=== PATIENT | male | born 1990 ===

== ENCOUNTER 2016-10-15 19:19 | Emergency (ER) | payer SELFPAY ==
[2016-10-15 19:42] VITALS: BP 132/86
--- NOTE | 2016-10-15 19:49 | UC ---
Complaint Male HPI - HPI Summary HPI Summary: right testicular pain since 10/12/16, intermittent, now right side feels swollen. No penile discharge. States he recently had urine testing and STD testing that was negative. 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 SO Onset/Duration: Gradual Onset, Lasting Days, Still Present Timing: Intermittent, Lasting Minutes Severity Initially: Moderate Severity Currently: Moderate Pain Intensity: 2 Pain Scale Used: 0-10 Numeric Location: Testicle - right Character: Sharp Aggravating Factor(s): Nothing Alleviating Factor(s): Nothing Associated Signs And Symptoms: Negative: Back Pain, Fever, Dysuria, Penile Swelling, Penile Discharge - Risk Factors Testicular Torsion: Negative - Allergies/Home Medications Allergies/Adverse Reactions: Allergies Allergy/AdvReac Type Severity Reaction Status Date / Time No Known Allergies Allergy Verified 10/15/16 19:43 Home Medications: Home Medications NK [No Home Medications Reported] 10/15/16 [History Confirmed 10/15/16] PMH/Surg Hx/FS Hx/Imm Hx Previously Healthy: Yes - Surgical History Surgical History: None - Family History Known Family History: Positive: Hypertension - Social History Alcohol Use: Rare Substance Use Type: None Smoking Status (MU): Heavy Every Day Tobacco Smoker Type: Cigarettes Amount Used/How Often: 1/2 PPD Have You Smoked in the Last Year: Yes - Immunization History Most Recent Influenza Vaccination: none Review of Systems Constitutional: Negative Gastrointestinal: Negative Genitourinary: Negative Neurological: Negative Psychological: Negative All Other Systems Reviewed And Are Negative: Yes Physical Exam Triage Information Reviewed: Yes Appearance: Well-Appearing, Well-Nourished, Pain Distress Vital Signs: Initial Vital Signs Temp 98.8 F 10/15/16 19:36 Pulse 74 10/15/16 19:36 Resp 16 10/15/16 19:36 BP 132/86 10/15/16 19:36 Pulse Ox 100 10/15/16 19:36 elevated BP noted Vital Signs Reviewed: Yes Eyes: Positive: Conjunctiva Clear ENT: Positive: Normal ENT inspection, Hearing grossly normal. Negative: Muffled /hoarse voice Neck: Positive: Supple Respiratory: Positive: No respiratory distress Cardiovascular: Positive: RRR, Pulses Normal, Brisk Capillary Refill Abdomen Description: Positive: Nontender, No Organomegaly, Soft, Other: - normal circumcised penis, no penile discharge, bilat testes descended, no masses , tender right epididymis, swelling right scrotum: exam performed with pt's girlfriend as school bus inspector. Negative: CVA Tenderness (R), CVA Tenderness (L), Distended, Guarding, Hepatomegaly, McBurney's Point Tenderness, Peritoneal Signs , Splenomegaly Bowel Sounds: Positive: Present Musculoskeletal: Positive: Strength Intact, ROM Intact Neurological: Positive: Alert, Muscle Tone Normal Psychological Exam: Normal Skin Exam: Normal Complaint Male Course/Dx - Course Course Of Treatment: Pt advised that there is no urology head of operation and logistics at [facility]. Advised that it could delay his care if he has torsion, if he needs to be transferred. Pt still chooses to go to the closest hospital by private car. - Differential Dx/Diagnosis Differential Diagnosis/HQI/PQRI: Epididymitis, Prostatitis, Testicular Torsion Provider Diagnoses: right testicular pain - Physician Notifications Time Discussed With Above Provider: 08:00 - Dr. Gomez, advises that there is no urology head of operation and logistics at [facility] Instructed by Provider To: MD Will See In ED Discharge - Discharge Plan Condition: Stable Disposition: AGAINST MEDICAL ADVICE Discharge Disposition Comment: pt going by private car to [facility]
== END 2016-10-15 20:05 | disposition left against medical advice (07) ==
LOC: UCCORT 19:19
DX: N50.811 Right testicular pain (principal); F17.210 Nicotine dependence, cigarettes, uncomplicated
CPT/HCPCS: 99212; G0463